=== PATIENT | male | born 1980 | race Caucasian/White ===

== ENCOUNTER 2018-01-07 22:06 | Emergency (ER) | payer OTHER ==
[~2018-01-07] VITALS: Ht 180.3 cm; Wt 63.5 kg
[2018-01-07] MEDS ORDERED: NORCO 5-325 TA1 EAC1 PO (23:09)
[2018-01-08 00:44] VITALS: BP 109/70
== END 2018-01-08 00:20 | disposition home or self-care (01) ==
LOC: M.ERS 22:06
DX: S52.571A Other intraarticular fracture of lower end of right radius, initial encounter for closed fracture (principal); S52.611A Displaced fracture of right ulna styloid process, initial encounter for closed fracture; W22.8XXA Striking against or struck by other objects, initial encounter; Y93.89 Activity, other specified; Y92.89 Other specified places as the place of occurrence of the external cause; Y99.8 Other external cause status